=== PATIENT | female | born 1990 | race American Indian/Alaskan Native ===

== ENCOUNTER 2019-07-03 18:09 | Emergency (ER) | payer OTHER ==
[~2019-07-03] VITALS: Ht 162.6 cm; Wt 59.0 kg
[2019-07-03 18:33] VITALS: BP 142/92
--- NOTE | 2019-07-03 19:41 | NUR ---
PT AMBULATED TO [facility]
[2019-07-03 20:00] VITALS: BP 142/92
--- NOTE | 2019-07-03 20:00 | NUR ---
Patient discharged with v/s stable. Written and verbal after care instructions given and explained. Patient alert, oriented and verbalized understanding of instructions. Ambulatory with steady gait. All questions addressed prior to discharge. ID band removed. Patient advised to follow up with PMD. Rx of WELBUTRIN WAS given. Patient educated on indication of medication including possible reaction and side effects. Opportunity to ask questions provided and answered. DR. RODRIGUEZ ASSESSED AND D/C BY DR. RODRIGUEZ
== END 2019-07-03 20:00 | disposition home or self-care (01) ==
LOC: MED 18:09
DX: F31.9 Bipolar disorder, unspecified (principal); Z76.0 Encounter for issue of repeat prescription
CPT/HCPCS: 99283